=== PATIENT | female | born 1965 | race Caucasian/White ===

== ENCOUNTER 2016-08-11 06:00 | Inpatient (IN) | payer BC ==
[~2016-08-11] VITALS: Ht 165.1 cm; Wt 88.5 kg
[2016-08-11] MEDS ORDERED: CEFAZOLIN SOD 1 GM in D5W 50 ML IV ONE (07:15)
[2016-08-11] MEDS ORDERED: MELA3TAB37 PO (07:24)
[2016-08-11] MEDS ORDERED: NAPR1TAB25 PO (07:24)
[2016-08-11] MEDS ORDERED: PROV10 PO (07:24)
[2016-08-11] MEDS ORDERED: AMLO5TAB4 PO (07:24)
[2016-08-11] MEDS ORDERED: ALPR0.2583 PO (07:24)
[2016-08-11] MEDS ORDERED: TUM500 GT (07:24)
[2016-08-11] MEDS ORDERED: LR 1,000 ML IV SCH (08:10)
[2016-08-11] MEDS ORDERED: METOCLOPRAMIDE HCL 10 MG/2 ML VIAL IVP PRN ×2 (08:15→15:15)
[2016-08-11] MEDS ORDERED: HYDROmorphone 2 MG/ML VIAL IVP PRN (08:15)
[2016-08-11] MEDS ORDERED: HYDROmorphone 1 MG INJ. 1 MG/ML AMPUL IVP PRN ×2 (08:15)
[2016-08-11] MEDS ORDERED: TEMAZEPAM 15 MG CAPSULE PO PRN (10:15)
[2016-08-11] MEDS ORDERED: DOCUSATE SODIUM 100 MG CAPSULE PO PRN (10:15)
[2016-08-11] MEDS ORDERED: SIMETHICONE 80 MG TAB.CHEW PO PRN (10:15)
[2016-08-11] MEDS ORDERED: SENNOSIDES/DOCUSATE SODIUM 1 TAB TABLET(SENOKOT-S) PO PRN (10:15)
[2016-08-11] MEDS ORDERED: MORPHINE SULFATE 10 MG/ML VIAL IVP ONE (10:22)
[2016-08-11] MEDS ORDERED: MORPHINE SULFATE 10 MG/ML VIAL IM SCH (10:30)
[2016-08-11] MEDS ORDERED: HYDROmorphone 1 MG INJ. 1 MG/ML AMPUL ONE ×2 (10:31→10:56)
[2016-08-11] MEDS ORDERED: COMMUNICATION ORDER XX ONE ×3 (12:00→18:15)
[2016-08-11] MEDS ORDERED: KETOROLAC TROMETHAMINE 30 MG VIAL IVP SCH ×2 (12:00→18:00)
[2016-08-11] MEDS ORDERED: MORPHINE 4 MG/ML INJ. SYRINGE IVP PRN (12:00)
[2016-08-11] MEDS ORDERED: IBUPROFEN 600 MG TABLET PO SCH (12:00)
[2016-08-11] MEDS ORDERED: MORPHINE 4 MG/ML INJ. SYRINGE IM PRN (12:45)
[2016-08-11] MEDS: LR 1,000 ML IV SCH ×2 (12:53→18:14)
[2016-08-11 13:09] VITALS: BP_SYST 115
[2016-08-11] MEDS: ONDANSETRON HCL 4 MG/2 ML VIAL IVP PRN (13:55)
[2016-08-11] MEDS ORDERED: SEVOFLURANE 15 MIN GAS INH ONE (14:00)
[2016-08-11] MEDS ORDERED: NS 1000 ML BAG IV ONE (14:00)
[2016-08-11] MEDS ORDERED: fentaNYL CITRATE/PF 100 MCG/2 ML AMP ONE (14:00)
[2016-08-11] MEDS ORDERED: fentaNYL CITRATE 250 MCG/5 ML AMP ONE (14:00)
[2016-08-11] MEDS ORDERED: LR 1,000 ML IV.SOLN IV ONE (14:00)
[2016-08-11] MEDS ORDERED: KETOROLAC TROMETHAMINE 30 MG VIAL ONE (14:00)
[2016-08-11] MEDS ORDERED: ONDANSETRON HCL 4 MG/2 ML VIAL ONE (14:00)
[2016-08-11] MEDS ORDERED: MIDAZOLAM HCL 5 MG/ML VIAL (VERSED) IV ONE (14:00)
[2016-08-11] MEDS ORDERED: ROCURONIUM BROMIDE 10 MG/ML (ZEMURON) ONE (14:00)
[2016-08-11] MEDS ORDERED: PROPOFOL 200MG/ 20ML VIAL (DIPRIVAN) IV ONE (14:00)
[2016-08-11] MEDS ORDERED: MORPHINE SULFATE 10 MG/ML VIAL IVP PRN (14:00)
[2016-08-11] MEDS ORDERED: CEFAZOLIN 1 GM IVPB PREMIX 50 ML IV ONE (14:00)
[2016-08-11 16:00] VITALS: BP_SYST 136
[2016-08-11 16:36] VITALS: BP_SYST 115
[2016-08-11] MEDS: MORPHINE 4 MG/ML INJ. SYRINGE IM PRN ×2 (16:38→23:39)
[2016-08-11] MEDS ORDERED: MORPHINE SULFATE 10 MG/ML VIAL IVP SCH (17:00)
[2016-08-11] MEDS: KETOROLAC TROMETHAMINE 30 MG VIAL IVP PRN (19:00)
[2016-08-11 20:57] VITALS: BP_SYST 122
[2016-08-11 23:40] VITALS: BP_SYST 128
[2016-08-12] VITALS (7 sets, daily range): BP systolic 109–143
[2016-08-12] MEDS: KETOROLAC TROMETHAMINE 30 MG VIAL IVP PRN (03:56)
[2016-08-12] MEDS: LR 1,000 ML IV SCH ×3 (03:56→17:30)
[2016-08-12 07:03] LABS: BASOPHILS % (AUTO) 0.3 % (0.0-2.0); EOSINOPHILS % (AUTO) 0.4 % (0.0-4.0); HEMATOCRIT 36.2 % (36-48); HEMOGLOBIN 11.9 g/dL (12.0-16.0); LYMPHOCYTES # (AUTO) 1.5 K/uL (1.0-5.5); MEAN CORPUSCULAR HEMOGLOBIN 27 pg (27-31); MEAN CORPUSCULAR HGB CONC 33 % (32-36); MEAN CORPUSCULAR VOLUME 83 fL (79.0-98.0); MONOCYTES # (AUTO) 1.1 K/uL (0.0-1.0); NEUTROPHILS # (AUTO) 9.8 K/uL (1.8-7.7); NEUTROPHILS % (AUTO) 78.3 % (40.0-70.0); PLATELET COUNT (AUTO) 272 K/uL (130-430); RED BLOOD CELL COUNT(AUTO) 4.38 MIL/uL (4.2-6.2); RED CELL DISTRIBUTION WIDTH 13.4 % (9.0-15.0); WHITE BLOOD COUNT (AUTO) 12.4 K/uL (4.8-10.8)
[2016-08-12 07:44] LABS: ALBUMIN 2.9 g/dL (3.4-4.8); CALCIUM 8.2 mg/dL (8.4-11.0); CREATININE 0.81 mg/dL (0.55-1.30); POTASSIUM 3.4 mmol/L (3.5-5.1); TOTAL BILIRUBIN 1.2 mg/dL (0.0-1.0); TOTAL PROTEIN, SERUM 6.3 g/dL (6.4-8.3)
[2016-08-12] MEDS: IBUPROFEN 600 MG TABLET PO SCH ×4 (07:51→23:41)
[2016-08-12] MEDS: OXYCODONE/ACETAMINOPHEN 5-325 TABLET PO PRN ×3 (09:56→21:35)
[2016-08-12] MEDS ORDERED: OXYCODONE/ACETAMINOPHEN 5-325 TABLET PO PRN (10:15)
[2016-08-12] MEDS ORDERED: IBUPROFEN 600 MG TABLET PO ONE (12:00)
[2016-08-13] MEDS: OXYCODONE/ACETAMINOPHEN 5-325 TABLET PO PRN ×3 (02:46→16:11)
[2016-08-13 04:25] VITALS: BP_SYST 102
[2016-08-13] MEDS: IBUPROFEN 600 MG TABLET PO SCH ×3 (05:30→17:30)
[2016-08-13] MEDS: ONDANSETRON HCL 4 MG/2 ML VIAL IVP PRN (05:32)
[2016-08-13] MEDS: BISACODYL 10 MG/SUPPOSITORY RC PRN ×2 (05:37→14:44)
[2016-08-13 08:19] VITALS: BP_SYST 114
[2016-08-13 09:38] LABS: BASOPHILS % (AUTO) 0.3 % (0.0-2.0); EOSINOPHILS # (AUTO) 0.4 K/uL (0.0-0.4); EOSINOPHILS % (AUTO) 2.6 % (0.0-4.0); HEMATOCRIT 36.3 % (36-48); LYMPHOCYTES # (AUTO) 1.9 K/uL (1.0-5.5); LYMPHOCYTES % (AUTO) 13.4 % (20.5-51.5); MEAN CORPUSCULAR HEMOGLOBIN 27 pg (27-31); MEAN CORPUSCULAR HGB CONC 33 % (32-36); MEAN CORPUSCULAR VOLUME 82 fL (79.0-98.0); MONOCYTES # (AUTO) 1.2 K/uL (0.0-1.0); MONOCYTES % (AUTO) 8.4 % (1.7-9.3); NEUTROPHILS # (AUTO) 10.6 K/uL (1.8-7.7); NEUTROPHILS % (AUTO) 75.3 % (40.0-70.0); PLATELET COUNT (AUTO) 313 K/uL (130-430); RED BLOOD CELL COUNT(AUTO) 4.41 MIL/uL (4.2-6.2); RED CELL DISTRIBUTION WIDTH 13.7 % (9.0-15.0); WHITE BLOOD COUNT (AUTO) 14.1 K/uL (4.8-10.8)
[2016-08-13 12:00] VITALS: BP_SYST 121
[2016-08-13 16:18] VITALS: BP_SYST 130
[2016-08-13 16:21] VITALS: BP_SYST 130
== END 2016-08-13 18:20 | disposition home or self-care (01) | DRG 743 ==
LOC: SMU 06:00
PROVIDERS: ADMIT Obstetrics & Gynecology; ATTEND Obstetrics & Gynecology
PROC: 0UTC0ZZ Resection of Cervix, Open Approach (ICD-10-PCS; 2016-08-11)
PROC: 0UT70ZZ Resection of Bilateral Fallopian Tubes, Open Approach (ICD-10-PCS; 2016-08-11)
PROC: 0UT90ZZ Resection of Uterus, Open Approach (ICD-10-PCS; principal; 2016-08-11 07:30)
DX: D25.9 Leiomyoma of uterus, unspecified (principal); N93.9 Abnormal uterine and vaginal bleeding, unspecified; N85.2 Hypertrophy of uterus; F41.9 Anxiety disorder, unspecified; I10 Essential (primary) hypertension; K21.9 Gastro-esophageal reflux disease without esophagitis; E66.9 Obesity, unspecified; Z82.5 Family history of asthma and other chronic lower respiratory diseases; Z82.49 Family history of ischemic heart disease and other diseases of the circulatory system; Z82.62 Family history of osteoporosis; Z98.51 Tubal ligation status; Z83.3 Family history of diabetes mellitus; Z80.0 Family history of malignant neoplasm of digestive organs; Z68.32 Body mass index [BMI] 32.0-32.9, adult
CPT/HCPCS: 36415; 80053; 83036; 85025; 86886; 86900; 86901; 87081; 88307; J0690; J1170; J1885; J2250; J2270; J2405; J2704; J2765; J3010; J7030; J7060; J7120